=== PATIENT | male | born 1955 | race Caucasian/White ===

== ENCOUNTER 2016-04-24 09:22 | Inpatient (IN) | payer BC ==
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
[~2016-04-24 09:22] MED LIST: BUPIVACAINE 0.25% (MDV) 20 ML in SODIUM CHLORIDE 0.9% FLUSH 20 ML IF PRN; BUPIVACAINE 0.25% (MDV) 24 ML, MORPHINE SULFATE 8 MG, EPINEPHRINE 0.3 MG in SODIUM CHLO... IF PRN; CEFAZOLIN SODIUM 2 GRAM PREMIX 100 ML IV PRN; CELECOXIB 200 MG CAPSULE PO ONE; CLONIDINE HCL 0.1 MG/24 HR (7 DAY PATCH) TD SCH; FAMOTIDINE 20 MG TABLET PO ONE; FENTANYL 100 MCG/2 ML VIAL ONE; GABAPENTIN 600 MG TABLET PO ONE; MIDAZOLAM HCL 1 MG/ML 2ML VIAL ONE; ONDANSETRON 4 MG/2ML 2 ML VIAL IV ONE; OXYCODONE HCL 10 MG TAB.SR PO ONE; POLYMYXIN B SULFATE 500,000 UNITS, BACITRACIN 25,000 UNITS in SODIUM CHLORIDE 3 L IRRIG... IR PRN; PROPOFOL 40 ML IV ONE; TRAMADOL HCL 50 MG TABLET PO ONE; TRANEXAMIC ACID 1,000 MG in SODIUM CHLORIDE 0.9% 100 ML IV PRN
[2016-04-24] MEDS ORDERED: CEFAZOLIN SODIUM 2 GRAM PREMIX 100 ML IV ONE (09:52)
[2016-04-24] MEDS ORDERED: LACTATED RINGERS 1,000 ML ONE (09:53)
[2016-04-24] MEDS ORDERED: IV START KIT ONE (09:53)
[2016-04-24] MEDS ORDERED: FAMOTIDINE 20 MG TABLET ONE (09:54)
[2016-04-24] MEDS ORDERED: TRAMADOL HCL 50 MG TABLET ONE (09:54)
[2016-04-24] MEDS ORDERED: OXYCODONE HCL 10 MG TAB.SR PO ONE ×2 (09:54→21:39)
[2016-04-24] MEDS ORDERED: ONDANSETRON 4 MG/2ML 2 ML VIAL ONE (09:54)
[2016-04-24] MEDS ORDERED: CELECOXIB 200 MG CAPSULE ONE (09:55)
[2016-04-24] MEDS ORDERED: GABAPENTIN 600 MG TABLET ONE (09:55)
[2016-04-24] MEDS ORDERED: CLONIDINE HCL 0.1 MG/24 HR (7 DAY PATCH) TD ONE (09:55)
[2016-04-24] MEDS ORDERED: SPINAL PROCEDURAL TRAY 1 EACH ONE (09:57)
[2016-04-24] MEDS ORDERED: HYDRALAZINE HCL 20 MG/1 ML VIAL IV PRN (11:28)
[2016-04-24] MEDS ORDERED: LABETALOL HCL 5 MG/ML 20ML VIAL IV PRN (11:28)
[2016-04-24] MEDS ORDERED: ATROPINE SULFATE 0.4 MG/1 ML VIAL IV PRN (11:28)
[2016-04-24] MEDS ORDERED: HYDROMORPHONE HCL 1 MG/ML SYRINGE IV PRN (11:28)
[2016-04-24] MEDS ORDERED: ONDANSETRON 4 MG/2ML 2 ML VIAL IV PRN ×2 (11:28)
[2016-04-24] MEDS ORDERED: MEPERIDINE 25 MG/ML SYRINGE IV PRN (11:28)
[2016-04-24] MEDS ORDERED: FENTANYL 100 MCG/2 ML VIAL IV PRN (11:28)
[2016-04-24] MEDS ORDERED: NALOXONE HCL 0.4 MG/ML VIAL IV PRN (11:28)
[2016-04-24] MEDS ORDERED: LACTATED RINGERS 1,000 ML IV SCH (11:30)
--- NOTE | 2016-04-24 13:27 | PCMBPN ---
Brief Post Op Note: Date of Procedure: 04/24/16 Start Time: 1130 Preoperative Diagnosis: 1. right hip osteoarthritis Postoperative Diagnosis: 1. Same Procedure: right total hip arthroplasty Surgeon: Ismael Jiang MD Assist: Mateus Yang PA-C Anesthesia: [place] Findings: as above Condition: stable to PACU Complications: none IV Fluids: 1500 mLs of LR Urine Output: 200 mLs Estimated Blood Loss: 200 mLs Tourniquet Time: none Specimens: none Implants: Depuy [place] cup 58mm, 40/58 neutral poly liner; Trilock 5 H.O. stem with 40 mm +8.5 biolox head Drains: none Ismael Jiang MD
[2016-04-24] MEDS ORDERED: CALCIUM CARBONATE 500 MG TAB.CHEW PO PRN (14:10)
[2016-04-24] MEDS ORDERED: TRAZODONE HCL 50 MG TABLET PO PRN (14:10)
[2016-04-24] MEDS ORDERED: KETOROLAC TROMETHAMINE 30 MG/ML 1 ML VIAL IV PRN (14:10)
--- NOTE | 2016-04-24 14:18 | RAD ---
PELVIS HISTORY: Status post total hip arthroplasty. Frontal portable radiograph of the lower pelvis and hips. COMPARISON: 02/20/2016. FINDINGS: POSTPROCEDURAL CHANGE: Status post right total hip arthroplasty. ALIGNMENT: Grossly anatomic. FRACTURE: None identified. ADDITIONAL POSTPROCEDURAL FINDINGS: Soft tissue gas and surgical anthony. LEFT HIP: Redemonstration of severe osteoarthritic change. IMPRESSION: Grossly unremarkable immediate post arthroplasty appearance of the right hip. Severe osteoarthritic change of the left hip.
[2016-04-24] MEDS ORDERED: PUMP TUBING ONE (15:22)
[2016-04-24] MEDS: D5 1/2NS with 20 mEq KCL 1,000 ML IV SCH ×2 (15:28→23:42)
[2016-04-24] MEDS: HYDROMORPHONE HCL 0.5 MG/0.5 ML SYRINGE IV PRN ×2 (15:29→18:09)
[2016-04-24 17:39] VITALS: BMI 30.3
[2016-04-24] MEDS: ONDANSETRON 4 MG/2ML 2 ML VIAL IV PRN (18:44)
[2016-04-24] MEDS: CEFAZOLIN SODIUM 1 GRAM PREMIX 1 G in Premix (D5W) 50 ml 1 EACH IV SCH (20:12)
[2016-04-24] MEDS: DOCUSATE SODIUM 100 MG CAPSULE PO SCH (20:14)
[2016-04-24] MEDS: OXYCODONE HCL 10 MG TAB.SR PO SCH (20:14)
[2016-04-24] MEDS: ACETAMINOPHEN 500 MG TABLET PO SCH (20:14)
[2016-04-24] MEDS: ASCORBIC ACID 500 MG TABLET PO SCH (20:14)
[2016-04-24] MEDS ORDERED: DOCUSATE SODIUM 100 MG CAPSULE PO ONE (21:42)
[2016-04-24] MEDS ORDERED: ASCORBIC ACID 500 MG TABLET PO ONE (21:43)
[2016-04-24] MEDS ORDERED: ACETAMINOPHEN 500 MG TABLET PO ONE (21:44)
[2016-04-25] MEDS: CEFAZOLIN SODIUM 1 GRAM PREMIX 1 G in Premix (D5W) 50 ml 1 EACH IV SCH (02:42)
[2016-04-25] MEDS: ACETAMINOPHEN 500 MG TABLET PO SCH ×4 (02:42→19:45)
[2016-04-25] MEDS: OXYCODONE HCL 5 MG TABLET PO PRN ×2 (06:25→19:45)
[2016-04-25 07:20] LABS: HEMATOCRIT 32.2 % (32.0-52.0); HEMOGLOBIN 11.1 gm/l (14.0-18.0); MEAN CELL VOLUME 84.7 fl (80.0-94.0); MEAN CORPUSCULAR HEMOGLOBIN 29.2 pg (27.0-31.0); MEAN CORPUSCULAR HGB CONC 34.5 g/dl (33.0-37.0); RED CELL DISTRIBUTION WIDTH 13.1 % (11.5-14.5)
[2016-04-25 07:31] LABS: CALCIUM 9.2 mg/dL (8.6-10.3)
--- NOTE | 2016-04-25 08:08 | PDOC43 ---
- Subjective Findings: POD1 after Right MICHAEL, doing well and without new complaint. Subjective: Reports Pain Tolerable, Denies Chest Pain, Denies Shortness of Breath, Denies Nausea, Denies Vomiting - Objective Vital Signs Temperature 99.0 F 04/25/16 03:30 Pulse Rate 61 04/25/16 03:30 Respiratory Rate 20 04/25/16 05:00 Blood Pressure 95/55 04/25/16 03:30 O2 Saturation by Pulse Oximetry 98 04/25/16 03:30 Oxygen Delivery Method Nasal Cannula Oxygen Flow Rate 2 Laboratory 04/25/16 07:04 04/25/16 07:04 04/25/16 07:04 RBC 3.80 L Anion Gap 6 L Active Medication Orders Category Date Time Status Acetaminophen [Tylenol] Med 04/24/16 20:00 Active 1,000 mg PO Q6H Ascorbic Acid [Vitamin C] Med 04/24/16 21:00 Active 500 mg PO BID Aspirin (Enteric Coated) [Ecotrin] Med 04/25/16 09:00 Active 325 mg PO DAILY Bisacodyl [Dulcolax] Med 04/27/16 13:12 Active 10 mg DE DAILY PRN Calcium Carbonate [Tums] Med 04/24/16 14:10 Active 1,000 - 2,000 mg PO Q2H PRN D5 1/2NS with 20 mEq KCL [D51/2NS with 20 mEq KCL] 1, Med 04/24/16 14:10 Active 000 ml IV 125 mls/hr Docusate Sodium [Colace] Med 04/24/16 21:00 Active 100 mg PO BID Hydromorphone HCl [Dilaudid] Med 04/24/16 14:10 Active 0.5 mg IV Q1H PRN Hydroxyzine Pamoate [Vistaril] Med 04/24/16 14:10 Active 25 - 50 mg PO Q4H PRN Ketorolac Tromethamine [Toradol] Med 04/24/16 14:10 Active 30 mg IV Q6H PRN Magnesium Hydroxide [Milk of Magnesia] Med 04/25/16 13:12 Active 30 ml PO DAILY PRN Multivitamins [One-A-Day] Med 04/25/16 09:00 Active 1 tab PO DAILY Ondansetron 4 mg/2ml Vial [Zofran] Med 04/24/16 14:10 Active 4 - 6 mg IV Q6H PRN Oxycodone HCl [Roxicodone] Med 04/24/16 14:10 Active 5 - 10 mg PO Q4H PRN Oxycodone Sr [Oxycontin] Med 04/24/16 21:00 Active 10 mg PO Q12HR Pantoprazole Sodium [Protonix] Med 04/25/16 09:00 Active 40 mg PO DAILY Remove Patch Med 04/25/16 13:12 Once 1 each TD X1 ONE Sodium Chloride 0.9% Flush [Normal Saline 10ml Flush] Med 04/24/16 14:10 Active 10 - 50 ml IV PRN PRN Sodium Chloride 0.9% Flush [Normal Saline 10ml Flush] Med 04/24/16 17:00 Active 10 ml IV Q8HR Tramadol HCl [Ultram] Med 04/24/16 20:30 Active 50 mg PO Q6H PRN Trazodone HCl [Desyrel] Med 04/24/16 14:10 Active 25 mg PO BEDTIME PRN Intake and Output 04/23/16 04/24/16 04/25/16 23:59 23:59 23:59 Intake Total 2861 700 Output Total 820 1650 Balance 2041 -950 General: Afebrile Lungs: Normal Air Movement Skin: Normal Color, Warm, Dry - Right Lower Extremity Incision: Dressing Clean/Dry/Intact, Well Approximated, Nancy Intact, No Drainage, No Erythema Motor: Extensor Hallucis Longus: 5/5, Tibialis Anterior: 5/5, Gastrocnemius: 5/5 , Peroneals: 5/5 Gross Sensation to Light Touch: Present: Deep Peroneal Nerve, Superficial Peroneal Nerve - Problems (1) Status post total hip replacement, right Status: Acute - Additional Comments 1. Physical Therapy: WBAT with [facility]. Plan for discharge home this afternoon / evening if meets criteria. 2. Pain Control: Multimodal pain control as needed. 3. DVT Prophylaxis: ASA 325mg daily, mobilize. 4. Disposition: Plan for discharge this afternoon/evening. 5. Medical Issues: Nothing new.
[2016-04-25] MEDS: ONDANSETRON 4 MG/2ML 2 ML VIAL IV PRN ×2 (08:30→13:19)
[2016-04-25] MEDS ORDERED: REMOVE PATCH 1 EACH UNIT TD SCH (09:15)
[2016-04-25] MEDS: TRAMADOL HCL 50 MG TABLET PO PRN ×2 (09:38→15:19)
[2016-04-25] MEDS: ASCORBIC ACID 500 MG TABLET PO SCH ×2 (09:38→22:10)
[2016-04-25] MEDS: ASPIRIN (ENTERIC COATED) 325 MG TABLET.EC PO SCH (09:39)
[2016-04-25] MEDS: HYDROXYZINE PAMOATE 25 MG CAPSULE PO PRN ×3 (09:39→22:31)
[2016-04-25] MEDS: DOCUSATE SODIUM 100 MG CAPSULE PO SCH ×2 (09:39→22:10)
[2016-04-25] MEDS: OXYCODONE HCL 10 MG TAB.SR PO SCH ×2 (09:39→22:10)
[2016-04-25] MEDS: MULTIVITAMINS 1 TAB TABLET PO SCH (09:39)
[2016-04-25] MEDS: PANTOPRAZOLE 40 MG TABLET DR PO SCH (09:39)
[2016-04-25] MEDS ORDERED: REMOVE PATCH 1 EACH UNIT TD ONE (13:12)
[2016-04-25] MEDS ORDERED: MAGNESIUM HYDROXIDE 30 ML UDCUP PO PRN (13:12)
[2016-04-25] MEDS ORDERED: PROMETHAZINE HCL 25 MG TABLET PO PRN (15:36)
[2016-04-25] MEDS: D5 1/2NS with 20 mEq KCL 1,000 ML IV SCH ×3 (18:33→22:10)
[2016-04-26] MEDS: OXYCODONE HCL 5 MG TABLET PO PRN ×3 (01:25→11:39)
[2016-04-26] MEDS: ACETAMINOPHEN 500 MG TABLET PO SCH ×2 (01:25→08:52)
[2016-04-26] MEDS: TRAMADOL HCL 50 MG TABLET PO PRN (05:50)
[2016-04-26 06:41] LABS: HEMATOCRIT 32.3 % (32.0-52.0); HEMOGLOBIN 10.9 gm/l (14.0-18.0)
[2016-04-26] MEDS: D5 1/2NS with 20 mEq KCL 1,000 ML IV SCH (07:13)
[2016-04-26] MEDS: PANTOPRAZOLE 40 MG TABLET DR PO SCH (08:51)
[2016-04-26] MEDS: ASPIRIN (ENTERIC COATED) 325 MG TABLET.EC PO SCH (08:51)
[2016-04-26] MEDS: OXYCODONE HCL 10 MG TAB.SR PO SCH (08:51)
[2016-04-26] MEDS: ASCORBIC ACID 500 MG TABLET PO SCH (08:52)
[2016-04-26] MEDS: DOCUSATE SODIUM 100 MG CAPSULE PO SCH (08:52)
[2016-04-26] MEDS: MULTIVITAMINS 1 TAB TABLET PO SCH (08:52)
[2016-04-26 09:38] VITALS: BP 137/81
--- NOTE | 2016-04-26 13:10 | RAD ---
HISTORY: Follow-up right MICHAEL. Patient felt a pop when walking stairs at physical therapy. COMPARISONS: Plain films on 417 FINDINGS: AP pelvis with AP and frog-leg lateral views of the right hip are obtained. Bones:No fracture or dislocation. Hardware is intact without signs of failure or loosening. Severe degenerative changes of the left hip are present with near bone on bone to bone on bone contact, large osteophytes along the lateral acetabular roof, rim osteophytes, subchondral sclerosis and cystic change. Joints: Near full-thickness to full-thickness cartilage loss is present on the left. Soft tissue: Postsurgical changes noted on the right. Other: Nonspecific bowel gas pattern overlays the osseous structures.. IMPRESSION: No fracture or dislocation. Intact hardware. Degenerative changes on the left as seen on prior study.
[2016-04-27] MEDS ORDERED: BISACODYL 10 MG SUP PR PRN (13:12)
--- NOTE | 2016-04-29 10:40 | OP ---
ROBIN GRIFFIN (RACHAEL) : 1955 [id number] DATE OF SERVICE: April 24, 2016 PREOPERATIVE DIAGNOSIS: Right hip osteoarthritis. POSTOPERATIVE DIAGNOSIS: Right hip osteoarthritis. PROCEDURE PERFORMED: RIGHT TOTAL HIP ARTHROPLASTY. SURGEON: Ismael Jiang M.D. BRANCH ACCOUNT MANAGER: Mike Yang P.A.-C. ANESTHESIA: Spinal per Ronaldo Ford SPECIMENS: No material was sent to the laboratory. ESTIMATED BLOOD LOSS: 200 mL. FLUIDS REPLACED: 1500 mL of crystalloid. URINE OUTPUT: 200 mL. TOURNIQUET: None IMPLANTS: DePuy [place] cup 58mm with a 40mm poly liner, Tri-Lock high offset stem size 5 with a 40mm +8.5 biolock ceramic hip. INDICATIONS: Patient is a 61-year-old male with long-standing right hip osteoarthritis which has failed to respond to a course of nonoperative measures. Patient has exam and radiographic findings, which support this diagnosis. In order to restore patient's ability to participate in desired level of activities they were offered a total hip arthroplasty. The risks, benefits and alternatives of therapy were discussed with the patient at length and they elected to proceed with surgery. The patient underwent preoperative clearances. Informed consent was obtained and documented in the chart and the patient was placed on the schedule at the first available convenience. DESCRIPTION OF PROCEDURE: The patient was identified in the pre-operative holding area where they were marked with an indelible marker by the operating surgeon. Patient was taken to the operating room where they underwent a spinal anesthetic and then was positioned on the left side using a pegboard for intraoperative positioning. An axillary roll was placed and all bony prominences were padded. The patient was prepped and draped in the usual sterile fashion for surgery and received perioperative antibiotics and tranexamic acid. A final operative time out was performed and confirmed by all members of the operative team. A standard posterior approach to the hip was used with dissection carried down to the fascia overlying the greater trochanter. The fascia was divided and a Charnley retractor was placed. The trochanteric bursa was excised. The sciatic nerve was identified and protected throughout the procedure. The leg was taken into internal rotation and the piriformis tendon with elevated out of the piriformis fossa and tagged for later repair and then an L-shaped arthrotomy was made dividing the capsule as far anteriorly as we could get on the neck and then taking up a posterior flap that involved the posterior capsule and the remainder of the short external rotators. At this point the hip was dislocated posteriorly and the level of our neck cut was marked out with a neck cut to guide. A neck cut was made with an oscillating saw and the head was excised. The anterior capsule was excised using a Bovie as was the entirety of the labrum and anterior and posterior and inferior retractors were placed. We started reaming with a 46 mm reamer to get medial to the true floor of the acetabulum and then reamed up to a 57 mm which gave us a good circumferential bleeding bone and appropriate fit. A 57 mm trial was placed and we were satisfied with the fit of the acetabulum. This was exchanged then for a 58 mm [place] cup with cluster holes. This was impacted in place and had excellent stability and position. Some overhanging bone in the anterior portion of the cup was excised using an osteotome and then a domed hole plug was placed and the neutral liner was impacted into the cup. At this point the anterior, posterior and inferior retractors were removed. The femoral neck elevator was placed and access to the proximal femur was obtained using a box osteotome and a canal finder. We broached up until we had good rotational and a longitudinal stability with a size 5 broach and then trialed off of that broach eventually settling on a standard offset with a 40 mm head at +8.5 neck length. This gave us excellent stability throughout. Anatomic range of motion did not show excessive tightness in extension, showed no tightness in the sciatic nerve and appropriately matched the opposite leg length. At this point all the trials were removed from the femur. The canal was copiously irrigated with a pulse lavage and the final stem was impacted into place. A 40mm biolock head +8.5 was then tapped on to the trunnion and the hip was reduced. Again, we were satisfied with our range of motion, leg length and stability. Three drill holes were made in the posterior, superior greater trochanter and the sutures that had been previously placed in the piriformis and the posterior capsule were used to repair these structures back to the femur. The hip was placed into a slightly abducted and externally rotated position. The Charnley retractors were removed. Everything was copiously irrigated with sterile saline and we closed the fascia with a running #0 Quill, the subcutaneous fat with a running #0 Vicryl, the subcutaneous tissues with interrupted sutures of #2-0 Vicryl and the skin with anthony. A sterile dressing of Xeroform, fluffs, ABDs and Medipore tape was applied. The drapes were removed. The patient was repositioned supine, transferred to a stretcher and taken postoperatively to the post anesthesia care unit in stable condition. There were no observed intraoperative conditions during this procedure. SUDHA/susan Cc: Mallietanya Castro
--- NOTE | 2016-05-23 16:44 | PDOC5 ---
ADMIT DATE: 04/24/16 DISCHARGE DATE: 04/26/16 ADMISSION DIAGNOSES: right hip osteoarthritis PROCEDURES PERFORMED THIS HOSPITALIZATION: right total hip arthroplasty SURGEON:Ismael Jiang MD CONSULTATIONS: PT/OT/Care Mgmt BRIEF HISTORY:This is a 61 year old male patient with activity-limiting right hip osteoarthritis which has failed to respond adequately to a course of nonoperative measures. After a discussion of the risks, benefits, and alternatives of ongoing therapies, patient elected to proceed with right total hip arthroplasty. The patient underwent standard preoperative clearance and education, and presented to the hospital on the scheduled date for surgery. BRIEF HOSPITAL COURSE: Patient tolerated the procedure without complication and was admitted postoperatively for observation, pain control, and rehabilitation. Patient had an uncomplicated hospital course; see daily notes for details. On POD#2 patient met all criteria for discharge and was discharged home with family assistance. Follow-up appointments for outpatient Physical Therapy and Orthopedics were provided at the time of discharge. Patient restarted preoperative medications, and received prescriptions for postoperative pain medications, a stool softener, and DVT prophylaxis. Ismael Jiang MD - Discharge Plan Disposition: Home Additional Instructions: PROCEDURE: Right total hip arthroplasty (replacement) 1.) Dressings: may remove dressings on POD#4 and shower normally, let water run over incision and pat dry, but do not submerge or scrub incision. Cover with clean dressing and then change dressing every day until completely dry. 2.) Activity: may bear weight as tolerated with assistive device at all times. Outpatient PT as previously scheduled. Daily exercises as instructed by PT. Posterior hip precautions at all times as instructed. 3.) Medications: a.) Oxycontin: long-acting pain medication taken morning and evening for 10 days, no refills b.) Tramadol: as-needed pain medication for mild to moderate breakthrough pain (call for refills 3-4 days before running out) c.) Oxycodone: as-needed pain medication for severe breakthrough pain (call for refills 3-4 days before running out) d.) Aspirin 325 mg (over-the counter): one tab daily for 4 weeks for prevention of blood clots e.) Colace: stool softener to help prevent constipation, taken twice a day as long as you are on narcotics; if continued constipation, get Magnesium Citrate [id number] and use per instructions every 12 hours until you have a bowel movement. 4.) Followup: May 06 at 10:30 AM with my PA, Mateus Yang at the [facility]. Call [phone] to confirm your appointment. 5.) Questions: call my office ([phone]) with any questions or concerns. Go to ED or call 911 for any acute changes in health status or emergencies. Ismael Jiang MD Follow-Up: Mike Yang PA [Physician Cushion Builder] - 05/06/16 10:30 am
== END 2016-04-26 14:22 | disposition home or self-care (01) | DRG 470 ==
LOC: OR 09:22 → MS 14:28
PROVIDERS: ADMIT Orthopaedic Surgery; ATTEND Orthopaedic Surgery
PROC: 0SR904A Replacement of Right Hip Joint with Ceramic on Polyethylene Synthetic Substitute, Uncemented, Open Approach (ICD-10-PCS; principal; 2016-04-24)
DX: M16.11 Unilateral primary osteoarthritis, right hip (principal); M25.751 Osteophyte, right hip

== ENCOUNTER 2016-06-26 05:28 | Inpatient (IN) | payer BC ==
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
[2016-06-26] MEDS ORDERED: CLONIDINE HCL 0.1 MG/24 HR (7 DAY PATCH) TD SCH (05:30)
[2016-06-26] MEDS ORDERED: FAMOTIDINE 20 MG TABLET PO ONE (05:30)
[2016-06-26] MEDS ORDERED: OXYCODONE HCL 10 MG TAB.SR PO ONE ×2 (05:30→05:32)
[2016-06-26] MEDS ORDERED: CEFAZOLIN SODIUM 2 GRAM PREMIX 100 ML IV PRN (05:30)
[2016-06-26] MEDS ORDERED: GABAPENTIN 600 MG TABLET PO ONE (05:30)
[2016-06-26] MEDS ORDERED: TRAMADOL HCL 50 MG TABLET PO ONE (05:30)
[2016-06-26] MEDS ORDERED: ONDANSETRON 4 MG/2ML 2 ML VIAL IV ONE (05:30)
[2016-06-26] MEDS ORDERED: ONDANSETRON 4 MG/2ML 2 ML VIAL ONE (05:32)
[2016-06-26] MEDS ORDERED: FAMOTIDINE 20 MG TABLET ONE (05:32)
[2016-06-26] MEDS ORDERED: GABAPENTIN 600 MG TABLET ONE (05:32)
[2016-06-26] MEDS ORDERED: LACTATED RINGERS 1,000 ML ONE (05:32)
[2016-06-26] MEDS ORDERED: TRAMADOL HCL 50 MG TABLET ONE (05:32)
[2016-06-26] MEDS ORDERED: IV START KIT ONE (05:32)
[2016-06-26] MEDS ORDERED: CLONIDINE HCL 0.1 MG/24 HR (7 DAY PATCH) TD ONE (05:33)
[2016-06-26] MEDS ORDERED: CELECOXIB 200 MG CAPSULE ONE (05:33)
[2016-06-26] MEDS: CELECOXIB 200 MG CAPSULE PO ONE ×2 (06:11→06:12)
[2016-06-26] MEDS ORDERED: SPINAL PROCEDURAL TRAY 1 EACH ONE (06:33)
[2016-06-26] MEDS ORDERED: MIDAZOLAM HCL 1 MG/ML 2ML VIAL ONE (06:43)
[2016-06-26] MEDS ORDERED: FENTANYL 100 MCG/2 ML VIAL ONE (06:43)
[2016-06-26] MEDS ORDERED: BUPIVACAINE 0.25% (MDV) 20 ML in SODIUM CHLORIDE 0.9% FLUSH 20 ML IF PRN (07:30)
[2016-06-26] MEDS ORDERED: TRANEXAMIC ACID 1,000 MG in SODIUM CHLORIDE 0.9% 100 ML IV PRN (07:30)
[2016-06-26] MEDS ORDERED: POLYMYXIN B SULFATE 500,000 UNITS, BACITRACIN 25,000 UNITS in SODIUM CHLORIDE 3 L IRRIG... IR PRN (07:30)
[2016-06-26] MEDS ORDERED: BUPIVACAINE 0.25% (MDV) 24 ML, MORPHINE SULFATE 8 MG, EPINEPHRINE 0.3 MG in SODIUM CHLO... IF PRN (07:30)
[2016-06-26] MEDS ORDERED: LIDOCAINE 2% (PRES FREE) 5 ML VIAL ONE (07:53)
[2016-06-26] MEDS ORDERED: DEXAMETHASONE SOD PHOS 4 MG/1 ML VIAL ONE (07:53)
[2016-06-26] MEDS ORDERED: PROPOFOL 40 ML IV ONE (07:53)
[2016-06-26] MEDS ORDERED: EPHEDRINE SULFATE UD SYR 25 MG 25 MG/5 ML SYRINGE IV ONE ×2 (08:06→08:22)
[2016-06-26] MEDS ORDERED: PHENYLEPHRINE 10 MG/1 ML (1%) VIAL ONE (08:34)
[2016-06-26] MEDS ORDERED: HYDROMORPHONE HCL 1 MG/ML SYRINGE IV PRN (08:36)
[2016-06-26] MEDS ORDERED: ONDANSETRON 4 MG/2ML 2 ML VIAL IV PRN (08:36)
[2016-06-26] MEDS ORDERED: PROMETHAZINE HCL 25 MG/ML VIAL IM PRN (08:36)
[2016-06-26] MEDS ORDERED: ATROPINE SULFATE 0.4 MG/1 ML VIAL IV PRN (08:36)
[2016-06-26] MEDS ORDERED: NALOXONE HCL 0.4 MG/ML VIAL IV PRN (08:36)
[2016-06-26] MEDS ORDERED: FENTANYL 100 MCG/2 ML VIAL IV PRN (08:36)
[2016-06-26] MEDS ORDERED: LACTATED RINGERS 1,000 ML IV SCH (08:45)
[2016-06-26] MEDS ORDERED: PROPOFOL 20 ML IV ONE ×2 (09:04)
--- NOTE | 2016-06-26 10:04 | PCMBPN ---
Brief Post Op Note: Date of Procedure: 06/26/16 Start Time: 0900 Preoperative Diagnosis: 1. left hip osteoarthritis Postoperative Diagnosis: 1. Same Procedure: left total hip arthroplasty Surgeon: Ismael Jiang MD Assist: Mateus Yang PA-C Anesthesia: Beau Suárez Findings: as above Condition: stable to PACU Complications: none IV Fluids: 2000 mLs of LR Urine Output: 600 mLs Estimated Blood Loss: 150 mLs Tourniquet Time: none Specimens: none Implants: DePuy Manlius cup, 58 mm; Trilock stem, size 4 std offset; Biolox head, 40mm +8.5; poly liner, 58/40 neutral Drains: none Ismael Jiang MD
--- NOTE | 2016-06-26 10:49 | RAD ---
PELVIS HISTORY: Postop left hip arthroplasty. COMPARISONS: 06/04/2016. FINDINGS: An AP view of the pelvis was performed demonstrating interval placement of a total left hip arthroplasty with a noncemented femoral component. No pericomponent fracture is visualized on this examination. The total right hip arthroplasty is stable to the appearance on prior exam. There are anthony within the lateral superficial soft tissues. IMPRESSION: 1. Interval placement of a total left hip arthroplasty with no pericomponent fracture visualized. 2. A stable appearance of the right hip arthroplasty.
[2016-06-26] MEDS ORDERED: HYDROMORPHONE HCL 0.5 MG/0.5 ML SYRINGE IV PRN (10:51)
[2016-06-26] MEDS ORDERED: HYDROXYZINE PAMOATE 25 MG CAPSULE PO PRN (10:51)
[2016-06-26] MEDS ORDERED: KETOROLAC TROMETHAMINE 30 MG/ML 1 ML VIAL IV PRN (10:51)
[2016-06-26] MEDS ORDERED: TRAZODONE HCL 50 MG TABLET PO PRN (10:51)
[2016-06-26 11:48] VITALS: BMI 30.3
[2016-06-26] MEDS ORDERED: PUMP TUBING ONE (12:09)
[2016-06-26] MEDS: D5 1/2NS with 20 mEq KCL 1,000 ML IV SCH ×2 (12:13→20:08)
[2016-06-26] MEDS: OXYCODONE HCL 5 MG TABLET PO PRN ×2 (13:21→14:07)
[2016-06-26] MEDS: ONDANSETRON 4 MG/2ML 2 ML VIAL IV PRN ×2 (14:12→20:08)
[2016-06-26] MEDS ORDERED: CEFAZOLIN SODIUM 1 GRAM PREMIX 50 ML IV ONE (15:28)
[2016-06-26] MEDS: CEFAZOLIN SODIUM 1 GRAM PREMIX 1 G in Premix (D5W) 50 ml 1 EACH IV SCH (15:58)
[2016-06-26] MEDS ORDERED: TRAMADOL HCL 50 MG TABLET PO PRN (16:30)
[2016-06-26] MEDS: ACETAMINOPHEN 500 MG TABLET PO SCH (17:15)
[2016-06-26] MEDS: OXYCODONE HCL 10 MG TAB.SR PO SCH (21:42)
[2016-06-26] MEDS: DOCUSATE SODIUM 100 MG CAPSULE PO SCH (21:42)
[2016-06-26] MEDS: ASCORBIC ACID 500 MG TABLET PO SCH (21:42)
[2016-06-27] MEDS ORDERED: CEFAZOLIN SODIUM 1 GRAM PREMIX 50 ML IV ONE (00:06)
[2016-06-27] MEDS: CEFAZOLIN SODIUM 1 GRAM PREMIX 1 G in Premix (D5W) 50 ml 1 EACH IV SCH (00:08)
[2016-06-27] MEDS: ACETAMINOPHEN 500 MG TABLET PO SCH ×5 (00:09→23:15)
[2016-06-27] MEDS: D5 1/2NS with 20 mEq KCL 1,000 ML IV SCH ×3 (03:29→19:34)
[2016-06-27] MEDS: CALCIUM CARBONATE 500 MG TAB.CHEW PO PRN ×2 (03:29→14:48)
[2016-06-27] MEDS ORDERED: REMOVE PATCH 1 EACH UNIT TD SCH (05:30)
[2016-06-27 06:46] LABS: HEMATOCRIT 28.9 % (32.0-52.0); HEMOGLOBIN 9.8 gm/l (14.0-18.0); MEAN CELL VOLUME 85.5 fl (80.0-94.0); MEAN CORPUSCULAR HGB CONC 33.9 g/dl (33.0-37.0); RED CELL DISTRIBUTION WIDTH 13.8 % (11.5-14.5)
--- NOTE | 2016-06-27 07:32 | PDOC43 ---
- Subjective Findings: Pain controlled, some nausea but better than after previous surgery. Subjective: Reports Flatus, Reports Pain Tolerable, Reports Nausea, Denies Chest Pain, Denies Shortness of Breath, Denies Vomiting - Objective Vital Signs Temperature 98.8 F 06/27/16 07:08 Pulse Rate 86 06/27/16 07:08 Respiratory Rate 17 06/27/16 07:08 Blood Pressure 98/55 06/27/16 07:08 O2 Saturation by Pulse Oximetry 94 06/27/16 07:08 Oxygen Delivery Method Room Air Oxygen Flow Rate 0 Laboratory 06/27/16 06:00 06/27/16 06:00 06/27/16 06:00 RBC 3.38 L Calcium 8.0 L Active Medication Orders Category Date Time Status Acetaminophen [Tylenol] Med 06/26/16 17:00 Active 1,000 mg PO Q6H Ascorbic Acid [Vitamin C] Med 06/26/16 21:00 Active 500 mg PO BID Aspirin (Enteric Coated) [Ecotrin] Med 06/27/16 09:00 Active 325 mg PO DAILY Bisacodyl [Dulcolax] Med 06/29/16 09:56 Active 10 mg [place] DAILY PRN Calcium Carbonate [Tums] Med 06/26/16 10:51 Active 1,000 - 2,000 mg PO Q2H PRN D5 1/2NS with 20 mEq KCL [D51/2NS with 20 mEq KCL] 1, Med 06/26/16 10:51 Active 000 ml IV 125 mls/hr Docusate Sodium [Colace] Med 06/26/16 21:00 Active 100 mg PO BID Hydromorphone HCl [Dilaudid] Med 06/26/16 10:51 Active 0.5 mg IV Q1H PRN Hydroxyzine Pamoate [Vistaril] Med 06/26/16 10:51 Active 25 - 50 mg PO Q4H PRN Ketorolac Tromethamine [Toradol] Med 06/26/16 10:51 Active 30 mg IV Q6H PRN Magnesium Hydroxide [Milk of Magnesia] Med 06/27/16 09:56 Active 30 ml PO DAILY PRN Multivitamins [One-A-Day] Med 06/27/16 09:00 Active 1 tab PO DAILY Ondansetron 4 mg/2ml Vial [Zofran] Med 06/26/16 10:51 Active 4 - 6 mg IV Q6H PRN Oxycodone HCl [Roxicodone] Med 06/26/16 10:51 Active 5 - 10 mg PO Q4H PRN Oxycodone Sr [Oxycontin] Med 06/26/16 21:00 Active 10 mg PO Q12HR Pantoprazole Sodium [Protonix] Med 06/27/16 09:00 Active 40 mg PO DAILY Remove Patch Med 06/27/16 09:56 Once 1 each TD X1 ONE Sodium Chloride 0.9% Flush [Normal Saline 10ml Flush] Med 06/26/16 10:51 Active 10 - 50 ml IV PRN PRN Sodium Chloride 0.9% Flush [Normal Saline 10ml Flush] Med 06/26/16 17:00 Active 10 ml IV Q8HR Tramadol HCl [Ultram] Med 06/26/16 16:30 Active 50 mg PO Q6H PRN Trazodone HCl [Desyrel] Med 06/26/16 10:51 Active 25 mg PO BEDTIME PRN Intake and Output 06/25/16 06/26/16 06/27/16 23:59 23:59 23:59 Intake Total 3603 1305 Output Total 4025 850 Balance -422 455 General: Afebrile, No Acute Distress Lungs: Normal Air Movement Abdomen: Soft Skin: Normal Color, Warm, Dry Neurological: Grossly Intact, Alert, Oriented x 4, Normal Speech Psych/Mental Status: Normal Affect, Normal Mood - Left Lower Extremity Incision: Dressing Clean/Dry/Intact, Well Approximated, [place] Intact, No Drainage Motor: Extensor Hallucis Longus: 5/5, Tibialis Anterior: 5/5, Gastrocnemius: 5/5 , Peroneals: 5/5, Quadriceps: 4/5 Gross Sensation to Light Touch: Present: Deep Peroneal Nerve, Superficial Peroneal Nerve, Medial Plantar Nerve, Lateral Plantar Nerve, Sural Nerve, Saphenous Nerve Capillary Refill: < 3 Seconds - Problems (1) Status post total hip replacement, right Status: AcuteAssessment/Plan: POD#1 L MICHAEL 1. Physical Therapy: up with PT, per protocol, goal of clearing PT today 2. Pain Control: adequate on multimodal 3. DVT Prophylaxis: ASA/mechanical/ambulation 4. Disposition: home today vs tomorrow 5. Medical Issues: no new issues. Ismael Jiang MD
[2016-06-27] MEDS: OXYCODONE HCL 5 MG TABLET PO PRN (07:37)
[2016-06-27] MEDS: ONDANSETRON 4 MG/2ML 2 ML VIAL IV PRN ×2 (08:25→14:39)
[2016-06-27] MEDS: MULTIVITAMINS 1 TAB TABLET PO SCH (09:00)
[2016-06-27] MEDS: ASCORBIC ACID 500 MG TABLET PO SCH ×2 (09:00→21:21)
[2016-06-27] MEDS: PANTOPRAZOLE 40 MG TABLET DR PO SCH (09:00)
[2016-06-27] MEDS: ASPIRIN (ENTERIC COATED) 325 MG TABLET.EC PO SCH (09:00)
[2016-06-27] MEDS: OXYCODONE HCL 10 MG TAB.SR PO SCH ×2 (09:01→21:21)
[2016-06-27] MEDS: DOCUSATE SODIUM 100 MG CAPSULE PO SCH ×2 (09:01→21:21)
[2016-06-27] MEDS ORDERED: REMOVE PATCH 1 EACH UNIT TD ONE (09:56)
[2016-06-27] MEDS ORDERED: MAGNESIUM HYDROXIDE 30 ML UDCUP PO PRN (09:56)
[2016-06-28] MEDS: D5 1/2NS with 20 mEq KCL 1,000 ML IV SCH (03:34)
[2016-06-28 06:09] LABS: HEMATOCRIT 26.2 % (32.0-52.0); HEMOGLOBIN 8.8 gm/l (14.0-18.0)
[2016-06-28] MEDS: ACETAMINOPHEN 500 MG TABLET PO SCH (06:46)
[2016-06-28] MEDS: PANTOPRAZOLE 40 MG TABLET DR PO SCH (08:37)
[2016-06-28] MEDS: MULTIVITAMINS 1 TAB TABLET PO SCH (08:38)
[2016-06-28] MEDS: DOCUSATE SODIUM 100 MG CAPSULE PO SCH (08:38)
[2016-06-28] MEDS: ASCORBIC ACID 500 MG TABLET PO SCH (08:38)
[2016-06-28] MEDS: OXYCODONE HCL 10 MG TAB.SR PO SCH (08:38)
[2016-06-28] MEDS: ASPIRIN (ENTERIC COATED) 325 MG TABLET.EC PO SCH (08:39)
--- NOTE | 2016-06-28 09:25 | PDOC43 ---
- Subjective Findings: Doing well this AM, nausea resolved, ready to go home. Subjective: Reports Flatus, Reports Pain Tolerable, Denies Chest Pain, Denies Shortness of Breath, Denies Nausea, Denies Vomiting, Denies Fever - Objective Vital Signs Temperature 99.7 F 06/28/16 07:48 Pulse Rate 83 06/28/16 07:48 Respiratory Rate 18 06/28/16 07:48 Blood Pressure 122/57 06/28/16 07:48 O2 Saturation by Pulse Oximetry 97 06/28/16 07:48 Oxygen Delivery Method Room Air Oxygen Flow Rate 0 Laboratory 06/28/16 05:30 06/27/16 06:00 Active Medication Orders Category Date Time Status Acetaminophen [Tylenol] Med 06/26/16 17:00 Active 1,000 mg PO Q6H Ascorbic Acid [Vitamin C] Med 06/26/16 21:00 Active 500 mg PO BID Aspirin (Enteric Coated) [Ecotrin] Med 06/27/16 09:00 Active 325 mg PO DAILY Bisacodyl [Dulcolax] Med 06/29/16 09:56 Active 10 mg [place] DAILY PRN Calcium Carbonate [Tums] Med 06/26/16 10:51 Active 1,000 - 2,000 mg PO Q2H PRN D5 1/2NS with 20 mEq KCL [D51/2NS with 20 mEq KCL] 1, Med 06/26/16 10:51 Active 000 ml IV 125 mls/hr Docusate Sodium [Colace] Med 06/26/16 21:00 Active 100 mg PO BID Hydromorphone HCl [Dilaudid] Med 06/26/16 10:51 Active 0.5 mg IV Q1H PRN Hydroxyzine Pamoate [Vistaril] Med 06/26/16 10:51 Active 25 - 50 mg PO Q4H PRN Magnesium Hydroxide [Milk of Magnesia] Med 06/27/16 09:56 Active 30 ml PO DAILY PRN Multivitamins [One-A-Day] Med 06/27/16 09:00 Active 1 tab PO DAILY Ondansetron 4 mg/2ml Vial [Zofran] Med 06/26/16 10:51 Active 4 - 6 mg IV Q6H PRN Oxycodone HCl [Roxicodone] Med 06/26/16 10:51 Active 5 - 10 mg PO Q4H PRN Oxycodone Sr [Oxycontin] Med 06/26/16 21:00 Active 10 mg PO Q12HR Pantoprazole Sodium [Protonix] Med 06/27/16 09:00 Active 40 mg PO DAILY Sodium Chloride 0.9% Flush [Normal Saline 10ml Flush] Med 06/26/16 10:51 Active 10 - 50 ml IV PRN PRN Sodium Chloride 0.9% Flush [Normal Saline 10ml Flush] Med 06/26/16 17:00 Active 10 ml IV Q8HR Tramadol HCl [Ultram] Med 06/26/16 16:30 Active 50 mg PO Q6H PRN Trazodone HCl [Desyrel] Med 06/26/16 10:51 Active 25 mg PO BEDTIME PRN Intake and Output 06/26/16 06/27/16 06/28/16 23:59 23:59 23:59 Intake Total 3603 2955 450 Output Total 4025 2650 1950 Balance -422 305 -1500 General: Afebrile, No Acute Distress Lungs: Normal Air Movement Abdomen: Soft Skin: Normal Color, Warm, Dry Neurological: Grossly Intact, Alert, Oriented x 4 Psych/Mental Status: Normal Affect, Normal Mood - Right Lower Extremity Incision: Dressing Clean/Dry/Intact, Well Approximated, [place] Intact, No Drainage, No Erythema, No Ecchymosis Motor: Extensor Hallucis Longus: 5/5, Tibialis Anterior: 5/5, Gastrocnemius: 5/5 , Peroneals: 5/5, Quadriceps: 5/5 Gross Sensation to Light Touch: Present: Deep Peroneal Nerve, Superficial Peroneal Nerve, Medial Plantar Nerve, Lateral Plantar Nerve, Sural Nerve, Saphenous Nerve Capillary Refill: < 3 Seconds - Problems (1) Status post total hip replacement, right Status: AcuteAssessment/Plan: POD#2 L MICHAEL 1. Physical Therapy: up with PT, per protocol, goal of clearing PT today 2. Pain Control: adequate on multimodal 3. DVT Prophylaxis: ASA/mechanical/ambulation 4. Disposition: home today 5. Medical Issues: no new issues. Ismael Jiang MD
--- NOTE | 2016-06-28 09:30 | PDOC5 ---
ADMIT DATE: 06/26/16 DISCHARGE DATE: 06/28/16 ADMISSION DIAGNOSES: left hip osteoarthritis PROCEDURES PERFORMED THIS HOSPITALIZATION: left total hip arthroplasty SURGEON:Ismael Jiang MD CONSULTATIONS: PT/OT/Care Mgmt BRIEF HISTORY:This is a 61 year old male patient with activity-limiting left hip osteoarthritis which has failed to respond adequately to a course of nonoperative measures. After a discussion of the risks, benefits, and alternatives of ongoing therapies, patient elected to proceed with left total hip arthroplasty. The patient underwent standard preoperative clearance and education, and presented to the hospital on the scheduled date for surgery. BRIEF HOSPITAL COURSE: Patient tolerated the procedure without complication and was admitted postoperatively for observation, pain control, and rehabilitation. Patient had an uncomplicated hospital course; see daily notes for details. On POD#2 patient met all criteria for discharge and was discharged home with family assistance. Follow-up appointments for outpatient Physical Therapy and Orthopedics were provided at the time of discharge. Patient restarted preoperative medications, and received prescriptions for postoperative pain medications, a stool softener, and DVT prophylaxis. Ismael Jiang MD - Discharge Diagnosis (1) Status post total hip replacement, right Status: Acute - Discharge Plan Additional Instructions: PROCEDURE: Left total hip arthroplasty (replacement) 1.) Dressings: may remove dressings on POD#4 and shower normally, let water run over incision and pat dry, but do not submerge or scrub incision. Cover with clean dressing and then change dressing every day until completely dry. 2.) Activity: may bear weight as tolerated with assistive device at all times. Outpatient PT as previously scheduled. Daily exercises as instructed by PT. Posterior hip precautions at all times as instructed. 3.) Medications: a.) Oxycontin: long-acting pain medication taken morning and evening for 10 days, no refills b.) Tramadol: as-needed pain medication for mild to moderate breakthrough pain (call for refills 3-4 days before running out) c.) Oxycodone: as-needed pain medication for severe breakthrough pain (call for refills 3-4 days before running out) d.) Aspirin 325 mg (over-the counter): one tab daily for 4 weeks for prevention of blood clots e.) Colace: stool softener to help prevent constipation, taken twice a day as long as you are on narcotics; if continued constipation, get Magnesium Citrate [id number] and use per instructions every 12 hours until you have a bowel movement. 4.) Followup: FridayJuly 09 at 1:45PM with Mateus Yang PA-C at the [facility]. Call [phone] to confirm your appointment. 5.) Questions: call my office ([phone]) with any questions or concerns. Go to ED or call 911 for any acute changes in health status or emergencies. Ismael Jiang MD Follow-Up: Mike Yang PA [Physician Assistant Distribution Manager] - 07/09/16 1:45 pm
[2016-06-28 09:37] VITALS: BP 103/61
--- NOTE | 2016-06-28 10:58 | OP ---
You GRIFFIN : 1955 [id number] DATE OF SERVICE: June 26, 2016 PREOPERATIVE DIAGNOSIS: Left hip osteoarthritis. POSTOPERATIVE DIAGNOSIS: Left hip osteoarthritis. PROCEDURE PERFORMED: LEFT TOTAL HIP ARTHROPLASTY. SURGEON: Ismael Jiang M.D. PENS AND PENCILS DIPPER: Mike Yang P.A.-C. ANESTHESIA: Beau Suárez C.R.N.A. SPECIMENS: No material was sent to the laboratory. ESTIMATED BLOOD LOSS: 150 mL. FLUIDS REPLACED: 2000 mL of crystalloid. URINE OUTPUT: 600 mL. TOURNIQUET: None. IMPLANTS: DePuy [place] cup size 58, TriLock stem size 4 standard offset, BioLox head 40 mm +8.5 and a 58/40 polyethylene liner. INDICATIONS: Patient is a 61-year-old male patient with long-standing left hip osteoarthritis which has failed to respond to a course of nonoperative measures. Patient has exam and radiographic findings, which support this diagnosis. In order to restore patient's ability to participate in desired level of activities they were offered a total hip arthroplasty. The risks, benefits and alternatives of therapy were discussed with the patient at length and they elected to proceed with surgery. The patient underwent preoperative clearances. Informed consent was obtained and documented in the chart and the patient was placed on the schedule at the first available convenience. DESCRIPTION OF PROCEDURE: The patient was identified in the pre-operative holding area where they were marked with an indelible marker by the operating surgeon. Patient was taken to the operating room where they underwent a spinal anesthetic and then was positioned on the right side using a pegboard for intraoperative positioning. An axillary roll was placed and all bony prominences were padded. The patient was prepped and draped in the usual sterile fashion for surgery and received perioperative antibiotics and tranexamic acid. A final operative time out was performed and confirmed by all members of the operative team. A standard posterior approach to the hip was used with dissection carried down to the fascia overlying the greater trochanter. The fascia was divided and a Charnley retractor was placed. The trochanteric bursa was excised. The sciatic nerve was identified and protected throughout the procedure. The leg was taken into internal rotation and the piriformis tendon with elevated out of the piriformis fossa and tagged for later repair and then an L-shaped arthrotomy was made dividing the capsule as far anteriorly as we could get on the neck and then taking up a posterior flap that involved the posterior capsule and the remainder of the short external rotators. At this point the hip was dislocated posteriorly and the level of our neck cut was marked out with a neck cut to guide. A neck cut was made with an oscillating saw and the head was excised. The anterior capsule was excised using a Bovie as was the entirety of the labrum and anterior and posterior and inferior retractors were placed. We started reaming with a 54 mm reamer to get medial to the true floor of the acetabulum and then reamed up to a 57 mm which gave us a good circumferential bleeding bone and appropriate fit. A 57 mm trial was placed and we were satisfied with the fit of the acetabulum. This was exchanged then for a 58 mm [place] cup with cluster holes. This was impacted in place and had excellent stability and position. Some overhanging bone in the anterior portion of the cup was excised using an osteotome and then a domed hole plug was placed and the neutral liner was impacted into the cup. At this point the anterior, posterior and inferior retractors were removed. The femoral neck elevator was placed and access to the proximal femur was obtained using a box osteotome and a canal finder. We broached up until we had good rotational and a longitudinal stability with a size 4 broach and then trialed off of that broach eventually settling on a standard offset with a 40 mm head at +8.5 neck length. This gave us excellent stability throughout. Anatomic range of motion did not show excessive tightness in extension, showed no tightness in the sciatic nerve and appropriately matched the opposite leg length. At this point all the trials were removed from the femur. The canal was copiously irrigated with a pulse lavage and the final stem was impacted into place. A 40 mm +8.5 BioLox head was then tapped on to the trunnion and the hip was reduced. Again, we were satisfied with our range of motion, leg length and stability. Three drill holes were made in the posterior, superior greater trochanter and the sutures that had been previously placed in the piriformis and the posterior capsule were used to repair these structures back to the femur. The hip was placed into a slightly abducted and externally rotated position. The Charnley retractors were removed. Everything was copiously irrigated with sterile saline and we closed the fascia with a running #0 Quill, the subcutaneous fat with a running #0 Vicryl, the subcutaneous tissues with interrupted sutures of #2-0 Vicryl and the skin with anthony. A sterile dressing of Xeroform, fluffs, ABDs and Medipore tape was applied. The drapes were removed. The patient was repositioned supine, transferred to a stretcher and taken postoperatively to the post anesthesia care unit in stable condition. There were no observed intraoperative conditions during this procedure. Job [id number] Cc: Waldron Matthew
[2016-06-29] MEDS ORDERED: BISACODYL 10 MG SUP PR PRN (09:56)
== END 2016-06-28 10:10 | disposition home or self-care (01) | DRG 470 ==
LOC: OR 05:28 → MS 11:00
PROVIDERS: ADMIT Orthopaedic Surgery; ATTEND Orthopaedic Surgery
PROC: 0SRB04A Replacement of Left Hip Joint with Ceramic on Polyethylene Synthetic Substitute, Uncemented, Open Approach (ICD-10-PCS; principal; 2016-06-26)
DX: M16.12 Unilateral primary osteoarthritis, left hip (principal); M25.752 Osteophyte, left hip; R42 Dizziness and giddiness; Z96.641 Presence of right artificial hip joint